=== PATIENT | female | born 1955 | race Caucasian/White ===

== ENCOUNTER 2021-12-26 11:37 | Emergency (ER) | payer OTHER ==
[~2021-12-26] VITALS: Ht 177.8 cm; Wt 97.0 kg
--- NOTE | 2021-12-26 12:12 | PHYS DOC ---
Past History Additional Past Medical Histor: back pain Past Surgical History: Other Additional Past Surgical Histo: r elbow surgery General Adult EDM: Chief Complaint: GROIN PAIN HPI: HPI: 66-year-old female presents via EMS from [facility] with right hip and groin pain that started 2 days ago. The patient regularly rides her bike. She rolled 3 days ago, on Sunday and did not have any difficulty. She only rode a couple of miles. The next day, she had right groin pain from the top of her thigh radiating down into her groin. She tried heat but this seemed to make things more inflamed. It is tender to palpation. She states she really cannot walk because of the pain. It hurts to move around and get out of bed. Hurts to stand up and sit down. She did not have any falls or trauma. No history of hip problems. Denies dysuria or increased urinary frequency. Review of Systems: Review of Systems: Constitutional: Denies fever or chills Eyes: Denies change in visual acuity HENT: Denies nasal congestion or sore throat Respiratory: Denies cough or shortness of breath Cardiovascular: Denies chest pain or edema GI: Denies abdominal pain, nausea, vomiting, bloody stools or diarrhea : Denies dysuria Musculoskeletal: Right hip and groin pain Integument: Denies rash Neurologic: Denies headache, focal weakness or sensory changes Endocrine: Denies polyuria or polydipsia Lymphatic: Denies swollen glands Psychiatric: Denies depression or anxiety Allergies: Allergies: Allergies Coded Allergies Type Severity Reaction Last Updated Verified clindamycin Allergy Unknown Hives 12/26/21 Yes Physical Exam: PE: Constitutional: Well developed, well nourished, no acute distress, non-toxic appearance. [] HENT: Normocephalic, atraumatic, bilateral external ears normal, oropharynx janeth st, no oral exudates, nose normal. [] Eyes: PERRLA, EOMI, conjunctiva normal, no discharge. [] Neck: Normal range of motion, no tenderness, supple, no stridor. [] Cardiovascular: Heart rate regular rhythm, no murmur [] Lungs & Thorax: Bilateral breath sounds clear to auscultation [] Abdomen: Bowel sounds normal, soft, no tenderness, no masses, no pulsatile masses. [] Skin: Warm, dry, no erythema, no rash. [] Back: No tenderness, no CVA tenderness. [] Extremities: Tenderness over the anterior lateral hip. No pain over the greater trochanter. No IT band pain. No pain with internal and external rotation. Some pain with mild loading into the hip.[] Neurologic: Alert and oriented X 3, normal motor function, normal sensory function, no focal deficits noted. [] Psychologic: Affect normal, judgement normal, mood normal. [] Current Patient Data: Vital Signs: Vital Signs Date Time Temp Pulse Resp B/P (MAP) Pulse Ox O2 Delivery O2 Flow Rate FiO2 12/26/21 11:43 98.8 68 16 155/68 (97) 100 EKG: EKG: [] Radiology/Procedures: Radiology/Procedures: [] Impressions: CT STUDY OF THE RIGHT HIP WITHOUT CONTRAST Clinical indications: Right groin pain. No known injury. TECHNIQUE: Noncontrast helical CT scanning of the right hip was performed. Multiplanar 2-D reconstructions were generated. PQRS compliance Statement One or more of the following individualized dose reduction techniques were utilized for this study: 1. Automated exposure control 2. Adjustment of the mA and/or kV according to patient size 3. Use of iterative reconstruction technique FINDINGS: No acute fracture is evident. There is mild joint space narrowing of the superior-lateral aspect of the right hip joint. No spurring of the right hip joint is evident. No erosive arthritis of the right hip joint is seen. No soft tissue mass or abscess or hematoma or fluid collection or cyst is apparent. No right inguinal hernia is seen. There is a mass of the left side of the uterus which measures 4.6 cm consistent with a fibroid. Urinary bladder wall is smooth. IMPRESSION: No acute osseous abnormality. 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 4.6 cm mass of the left side uterus most likely representing a uterine fibroid. This may be further evaluated with pelvic sonography. Electronically signed by: Mirian Sanchez MD (12/26/2021 1:06 PM) [id number] DICTATED AND SIGNED BY: MIRIAN SANCHEZ MD DATE: 12/26/21 1259 CC: MACRO A CORTEZ DO; LYNDSEY TAVERA DO ~MTH0 0 Heart Score: C/O Chest Pain: N/A Risk Factors: Risk Factors: DM, Current or recent (<one month) smoker, HTN, HLP, family history of CAD, obesity. Risk Scores: Score 0 - 3: 2.5% MACE over next 6 weeks - Discharge Home Score 4 - 6: 20.3% MACE over next 6 weeks - Admit for Clinical Observation Score 7 - 10: 72.7% MACE over next 6 weeks - Early Invasive Strategies Course & Med Decision Making: Course & Med Decision Making Pertinent Labs and Imaging studies reviewed. (See chart for details) The patient's labs are unremarkable. I did a CT of the patient's leg and it shows joint space narrowing of the hip joint which may be seen with chondromalacia. See official read for more details. There is also an incidental finding in the uterus. She will follow-up on this with her primary doctor. For her hip pain, I recommend the patient use ice not heat and anti- inflammatories. She may need to see orthopedics and consider injection. She states verbal understanding. She is stable for discharge at this time. [] Javid Disclaimer: Javid Disclaimer: This electronic medical record was generated, in whole or in part, using a voice recognition dictation system. Departure Departure: Impression: Primary Impression: Right hip pain Disposition: HOME / SELF CARE / HOMELESS Condition: STABLE Referrals: PCP,KERMIT (PCP) Patient Instructions: Hip Pain MARCO A CORTEZ DO Dec 26, 2021 12:12
--- NOTE | 2021-12-26 13:08 | RAD ---
CT STUDY OF THE RIGHT HIP WITHOUT CONTRAST Clinical indications: Right groin pain. No known injury. TECHNIQUE: Noncontrast helical CT scanning of the right hip was performed. Multiplanar 2-D reconstruc tions were generated. PQRS compliance Statement One or more of the following individualized dose reduction techniques were utilized for this study: 1. Automated exposure control 2. Adjustment of the mA and/or kV according to patient size 3. Use of iterative reconstruction technique FINDINGS: No acute fracture is evident. There is mild joint space narrowing of the superior-lateral a spect of the right hip joint. No spurring of the right hip joint is evident. No erosive arthritis of the right hip joint is seen. No soft tissue mass or abscess or hematoma or fluid collection or cyst i s apparent. No right inguinal hernia is seen. There is a mass of the left side of the uterus which me asures 4.6 cm consistent with a fibroid. Urinary bladder wall is smooth. IMPRESSION: No acute osseous abnormality. Joint space narrowing of the superior-lateral aspect of the right hip joint which may be seen with ch ondromalacia. 4.6 cm mass of the left side uterus most likely representing a uterine fibroid. This may be further e valuated with pelvic sonography. Electronically signed by: Juancho Sanchez MD (12/26/2021 1:06 PM) [id number]
[2021-12-26 13:12] LABS: BASO # 0.1 x10^3/uL (0.0-0.2); BASO % 1 % (0-3); EOS % 0 % (0-3); HEMATOCRIT 40.5 % (36.0-47.0); HEMOGLOBIN 13.3 g/dL (12.0-15.5); LYMPH # 1.7 x10^3/uL (1.0-4.8); LYMPH % 23 % (24-48); MEAN CORPUSCULAR HEMOGLOBIN 30 pg (25-35); MEAN CORPUSCULAR HGB CONC 33 g/dL (31-37); MEAN CORPUSCULAR VOLUME 90 fL (79-100); MONO # 0.5 x10^3/uL (0.0-1.1); MONO % 7 % (0-9); NEUT # 5.3 x10^3uL (1.8-7.7); NEUT % 69 % (31-73); PLATELET COUNT 336 x10^3/uL (140-400); RED CELL DISTRIBUTION WIDTH 12.5 % (11.5-14.5); WHITE BLOOD COUNT 7.6 x10^3/uL (4.0-11.0)
[2021-12-26 13:26] LABS: CALCIUM 9.1 mg/dL (8.5-10.1); CREATININE 0.8 mg/dL (0.6-1.0); GFR 72.2; POTASSIUM 3.6 mmol/L (3.5-5.1)
[2021-12-26 13:33] LABS: ALBUMIN/GLOBULIN RATIO 1.1 (1.0-1.7); MAGNESIUM 2.3 mg/dL (1.8-2.4); TOTAL BILIRUBIN 0.6 mg/dL (0.2-1.0); TOTAL PROTEIN 7.6 g/dL (6.4-8.2)
[2021-12-26] MEDS ORDERED: NAPR-514 PO (13:58)
[2021-12-26 14:00] VITALS: BP 152/74
[2021-12-26] MEDS ORDERED: NAPROXEN 500 MG TABLET PO ONE (14:00)
[2021-12-26] MEDS ORDERED: CYCLOBENZAPRINE 10 MG TABLET. PO ONE (14:00)
== END 2021-12-26 14:30 | disposition home or self-care (01) ==
LOC: ER 11:37
DX: M25.551 Pain in right hip (principal); R10.31 Right lower quadrant pain; Z88.1 Allergy status to other antibiotic agents
CPT/HCPCS: 36415; 73700; 80053; 83735; 84443; 85025; 99284